=== PATIENT | male | born 1985 | race Caucasian/White ===

== ENCOUNTER 2017-10-17 00:11 | Emergency (ER) | payer MEDICAID, OTHER ==
[~2017-10-17] VITALS: Ht 190.5 cm; Wt 90.9 kg
[~2017-10-17 00:11] MED LIST: BACDS PO; CEPH-357 PO; HYDR-3566 PO; NO HOME MEDS; PENI-88 PO
[2017-10-17 00:14] VITALS: BP 152/94
[2017-10-17] MEDS ORDERED: AMOX500C2 PO (00:32)
== END 2017-10-17 00:56 | disposition home or self-care (01) ==
LOC: ER 00:12
DX: K08.89 Other specified disorders of teeth and supporting structures (principal); Z79.2 Long term (current) use of antibiotics; Z79.899 Other long term (current) drug therapy
CPT/HCPCS: 99283

== ENCOUNTER 2018-07-13 03:42 | Emergency (ER) | payer MEDICAID, OTHER ==
[~2018-07-13] VITALS: Ht 190.5 cm; Wt 104.5 kg
[2018-07-13 03:53] VITALS: BP 162/103
--- NOTE | 2018-07-13 04:15 | NUR ---
DISCUSSED PT WITH DR RUIZ. OK TO DO XRAY. HOLD ON LABS SINCE VSS.
[2018-07-13] MEDS ORDERED: DOXYCYCLINE 100MG CAPSULE PO STA (04:17)
[2018-07-13] MEDS ORDERED: ondansetron 4mg rapidly disintigrating tab PO ONE (04:20)
[2018-07-13] MEDS ORDERED: DOXY100C43 PO (04:23)
== END 2018-07-13 05:04 | disposition home or self-care (01) ==
LOC: ER 03:43
DX: L08.89 Other specified local infections of the skin and subcutaneous tissue (principal); Z79.899 Other long term (current) drug therapy
CPT/HCPCS: 73590; 99283

== ENCOUNTER 2019-10-10 06:48 | Emergency (ER) | payer MEDICAID, OTHER ==
[~2019-10-10] VITALS: Ht 188 cm; Wt 118.2 kg
[~2019-10-10 06:48] MED LIST changes: -HYDR-3566 PO; +HYDR-3567 PO
[2019-10-10 08:11] LABS: BASOPHILS # (AUTO) 0.1 X10'3 (0-0.2); BASOPHILS % (AUTO) 0.8 % (0-1); EOSINOPHILS # (AUTO) 0.2 X10'3 (0-0.9); EOSINOPHILS % (AUTO) 1.9 % (0-6); HEMATOCRIT 34.2 % (42.0-52.0); HEMOGLOBIN 11.4 g/dl (14.0-17.9); LYMPHOCYTES # (AUTO) 1.4 X10'3 (1.1-4.8); LYMPHOCYTES % (AUTO) 15.5 % (21-51); MEAN CORPUSCULAR HEMOGLOBIN 27.2 PG (27.0-31.0); MEAN CORPUSCULAR HGB CONC 33.4 g/dL (33.0-36.5); MEAN CORPUSCULAR VOLUME 81.4 FL (78-98); MEAN PLATELET VOLUME 7.4 FL (7.4-10.4); MONOCYTES # (AUTO) 1.1 X10'3 (0-0.9); MONOCYTES % (AUTO) 11.7 % (2-12); NEUTROPHILS # (AUTO) 6.3 X10'3 (1.8-7.7); NEUTROPHILS % (AUTO) 70.1 % (42-75); PLATELET COUNT 359 X10'3 (140-440); RED BLOOD COUNT 4.21 X10'6 (4.70-6.10); RED CELL DISTRIBUTION WIDTH 14.7 % (11.5-14.5)
[2019-10-10 08:28] LABS: ALANINE AMINOTRANSFERASE 33 U/L (12-78); ALBUMIN/GLOBULIN RATIO 0.7 (1.1-1.5); ALKALINE PHOSPHATASE 105 IU/L (46-116); ANION GAP 9 (8-16); ASPARTATE AMINO TRANSFERASE 25 U/L (10-37); BILIRUBIN,TOTAL 0.3 MG/DL (0.1-1.0); BLOOD UREA NITROGEN 12 MG/DL (7-18); BUN/CREATININE RATIO 12.9 (5.4-32.0); CALCIUM 8.4 MG/DL (8.5-10.1); CHLORIDE 106 MMOL/L (99-107); CREATININE 0.93 MG/DL (0.60-1.10); GLUCOSE 99 MG/DL (70-104); POTASSIUM 3.7 MMOL/L (3.5-5.1); SODIUM 141 MMOL/L (135-145); TOTAL CARBON DIOXIDE 25.7 MMOL/L (24-32); TOTAL PROTEIN 7.2 G/DL (6.4-8.2); eGFR > 90 ML/MIN
[2019-10-10 09:04] VITALS: BP 171/88
== END 2019-10-10 09:16 | disposition home or self-care (01) ==
LOC: ER 06:49
DX: R07.89 Other chest pain (principal); R06.03 Acute respiratory distress; F41.0 Panic disorder [episodic paroxysmal anxiety]; F12.90 Cannabis use, unspecified, uncomplicated; F15.90 Other stimulant use, unspecified, uncomplicated; Z79.2 Long term (current) use of antibiotics; Z79.899 Other long term (current) drug therapy
CPT/HCPCS: 36415; 71045; 80053; 84484; 85025; 93005; 99285

== ENCOUNTER 2020-09-15 20:53 | Emergency (ER) | payer MEDICAID, OTHER | END 2020-09-15 23:24 | disposition left against medical advice (07) | LOC: ER 20:54 | DX: F10.129 Alcohol abuse with intoxication, unspecified (principal); Z53.21 Procedure and treatment not carried out due to patient leaving prior to being seen by health care provider ==

== ENCOUNTER 2021-05-03 00:27 | Emergency (ER) | payer MEDICAID, OTHER ==
[~2021-05-03] VITALS: Ht 190.5 cm; Wt 124.6 kg
[2021-05-03 04:16] VITALS: BP 140/84
[2021-05-03] MEDS ORDERED: cephalexin 250mg capsule PO ONE (04:35)
[2021-05-03] MEDS ORDERED: CEPH250T PO (04:37)
== END 2021-05-03 04:58 | disposition home or self-care (01) ==
LOC: ER 00:28
DX: L97.929 Non-pressure chronic ulcer of unspecified part of left lower leg with unspecified severity (principal); F17.200 Nicotine dependence, unspecified, uncomplicated; F12.90 Cannabis use, unspecified, uncomplicated; F15.90 Other stimulant use, unspecified, uncomplicated
CPT/HCPCS: 99283

== ENCOUNTER 2021-10-23 07:26 | Emergency (ER) | payer MEDICAID ==
[~2021-10-23] VITALS: Ht 190.5 cm; Wt 113.8 kg
[~2021-10-23 07:26] MED LIST changes: +CEPH250T PO
[2021-10-23 07:44] VITALS: BP 168/89
== END 2021-10-23 09:05 | disposition home or self-care (01) ==
LOC: ER 07:26
DX: F10.20 Alcohol dependence, uncomplicated (principal); F17.200 Nicotine dependence, unspecified, uncomplicated; F12.90 Cannabis use, unspecified, uncomplicated; F15.20 Other stimulant dependence, uncomplicated
CPT/HCPCS: 99281

== ENCOUNTER 2021-12-01 03:29 | Inpatient (IN) | payer MEDICAID ==
[~2021-12-01] VITALS: Ht 188 cm; Wt 100.0 kg
[2021-12-01 04:54] LABS: BASOPHILS # (AUTO) 0.1 X10'3 (0-0.2); BASOPHILS % (AUTO) 0.9 % (0-1); EOSINOPHILS # (AUTO) 0.1 X10'3 (0-0.9); EOSINOPHILS % (AUTO) 1.4 % (0-6); HEMATOCRIT 38.8 % (42.0-52.0); HEMOGLOBIN 13.6 g/dl (14.0-17.9); LYMPHOCYTES # (AUTO) 2.7 X10'3 (1.1-4.8); LYMPHOCYTES % (AUTO) 31.1 % (21-51); MEAN CORPUSCULAR HEMOGLOBIN 31.8 PG (27.0-31.0); MEAN CORPUSCULAR HGB CONC 35.1 g/dL (33.0-36.5); MEAN CORPUSCULAR VOLUME 90.7 FL (78-98); MEAN PLATELET VOLUME 7.3 FL (7.4-10.4); MONOCYTES % (AUTO) 11.1 % (2-12); NEUTROPHILS # (AUTO) 4.9 X10'3 (1.8-7.7); NEUTROPHILS % (AUTO) 55.5 % (42-75); PLATELET COUNT 390 X10'3 (140-440); RED BLOOD COUNT 4.28 X10'6 (4.70-6.10); RED CELL DISTRIBUTION WIDTH 13.9 % (11.5-14.5); WHITE BLOOD COUNT 8.8 X10'3 (4.5-11.0)
[2021-12-01] MEDS ORDERED: CefTRIAXone/D5W-Rocephin 1gm 50 ML IV ONE (05:10)
[2021-12-01] MEDS ORDERED: vancomycin/NS 1 GM ADD-VANTAGE 250 ML IV ONE (05:10)
[2021-12-01 05:26] LABS: ALANINE AMINOTRANSFERASE 35 U/L (12-78); ALBUMIN/GLOBULIN RATIO 0.6 (1.1-1.5); ALKALINE PHOSPHATASE 93 IU/L (46-116); ANION GAP 13 (8-16); ASPARTATE AMINO TRANSFERASE 25 U/L (10-37); BILIRUBIN,TOTAL 0.2 MG/DL (0.1-1.0); BLOOD UREA NITROGEN 13 MG/DL (7-18); BUN/CREATININE RATIO 12.5 (5.4-32.0); CALCIUM 8.2 MG/DL (8.5-10.1); CHLORIDE 107 MMOL/L (99-107); CREATININE 1.04 MG/DL (0.60-1.10); ETHANOL 0.207 GM/DL (0.0-0.010); GLUCOSE 93 MG/DL (70-104); POTASSIUM 3.3 MMOL/L (3.5-5.1); SODIUM 143 MMOL/L (135-145); TOTAL CARBON DIOXIDE 22.8 MMOL/L (24-32); TOTAL PROTEIN 8.3 G/DL (6.4-8.2); eGFR 80 ML/MIN
[2021-12-01] MEDS ORDERED: normal saline 1000ML IV soln IV ONE (05:35)
[2021-12-01] MEDS ORDERED: acetaminophen 325mg tablet PO PRN ×2 (07:55)
[2021-12-01] MEDS ORDERED: ondansetron/PF 4mg/2ml inj IV PRN (07:55)
[2021-12-01] MEDS ORDERED: magnesium hydroxide 30ml (MOM) UD suspension PO PRN (07:55)
[2021-12-01] MEDS ORDERED: HYDROcodone/acetaminophen 5mg/325mg tablet PO PRN (07:55)
[2021-12-01] MEDS ORDERED: mag hydrox/Alum hydrox/simeth 30ml oral suspension PO PRN (07:55)
[2021-12-01] MEDS ORDERED: morphine 2 MG/ML inj. syringe IV PRN (07:55)
[2021-12-01] MEDS: docusate sod 100mg capsule PO SCH ×2 (08:00→19:51)
[2021-12-01] MEDS ORDERED: vancomycin/NS 1 GM ADD-VANTAGE 250 ML IV SCH (08:00)
[2021-12-01] MEDS: enoxaparin 40mg/0.4ml syringe SUBCUT SCH (08:00)
--- NOTE | 2021-12-01 08:23 | NUR ---
PT AWAKE AND COMPLAINING OF RIGHT SHOULDER PAIN. PT HAS LIMITED ROM IN ARM AND KRISTA TO TOUCH. PT STILL UNSURE WHAT HAPPENED LAST NIGHT. ADMITS TO ETOH USE BUT STATES HE ISNT CONCERNED FOR WITHDRAWL.
[2021-12-01] MEDS ORDERED: nicotine 21mg patch - 24 hr TD ONE (08:55)
[2021-12-01] MEDS: levoFLOXACIN 750MG TABLET PO SCH (11:33)
[2021-12-01] MEDS ORDERED: NO HOME MEDS (13:03)
[2021-12-01 15:37] LABS: URINE AMPHETAMINE SCREEN POSITIVE (Neg); URINE BARBITUATE SCREEN NEGATIVE (Neg); URINE BENZODIAZEPINES SCREEN NEGATIVE (Neg); URINE CANNABINOID SCREEN POSITIVE (Neg); URINE COCAINE SCREEN NEGATIVE (Neg); URINE METHADONE SCREEN NEGATIVE (Neg); URINE OPIATE SCREEN POSITIVE (Neg); URINE PHENCYCLIDINE SCREEN NEGATIVE (Neg)
[2021-12-01] MEDS ORDERED: potassium CL 10mEq/100ml bag 100 ML IV PRN (18:00)
[2021-12-01] MEDS ORDERED: magnesium 2GM in 50ml NS 50 ML IV PRN (18:00)
[2021-12-01] MEDS ORDERED: magnesium 4gm in 100ml NS 100 ML IV PRN (18:00)
[2021-12-01] MEDS ORDERED: magnesium Cl slow-release 64mg tablet PO PRN (18:00)
[2021-12-01] MEDS ORDERED: POTASSIUM BICARB 20meq eff tab 20 MEQ TABLET.EFF PO PRN ×2 (18:00)
[2021-12-01] MEDS: morphine 2 MG/ML inj. syringe IV PRN ×2 (18:08→22:28)
[2021-12-01] MEDS: VANCOmycin 1250MG/NS 250ml Bag 250 ML IV SCH (18:12)
[2021-12-01 19:30] VITALS: BP 154/94
[2021-12-01] MEDS: K and/or MAG REPLACEMENT MC SCH (19:47)
[2021-12-01] MEDS: HYDROcodone/acetaminophen 10/325mg tab PO PRN (19:51)
[2021-12-01 22:00] VITALS: BP 137/86
[2021-12-02] MEDS: VANCOmycin 1250MG/NS 250ml Bag 250 ML IV SCH ×2 (05:05→16:54)
[2021-12-02 06:00] VITALS: BP 157/96
--- NOTE | 2021-12-02 06:01 | NUR ---
Problems reprioritized. Patient report given, questions answered & plan of care reviewed with AIMEE Montgomery.
--- NOTE | 2021-12-02 07:00 | NUR ---
Informed patient needs new PIV due to prev one placed infiltrating. Patient is a very difficult stick and currently has 3 phlebotomists attempting a lab draw, with much difficulty locating aaccess. Bandar TOLEDO stated he would attempt.
[2021-12-02 07:28] LABS: BASOPHILS # (AUTO) 0.1 X10'3 (0-0.2); BASOPHILS % (AUTO) 0.7 % (0-1); EOSINOPHILS # (AUTO) 0.2 X10'3 (0-0.9); EOSINOPHILS % (AUTO) 2.2 % (0-6); HEMOGLOBIN 13.4 g/dl (14.0-17.9); LYMPHOCYTES # (AUTO) 1.3 X10'3 (1.1-4.8); LYMPHOCYTES % (AUTO) 18.3 % (21-51); MEAN CORPUSCULAR HGB CONC 33.4 g/dL (33.0-36.5); MEAN CORPUSCULAR VOLUME 92.7 FL (78-98); MEAN PLATELET VOLUME 8.1 FL (7.4-10.4); MONOCYTES # (AUTO) 0.9 X10'3 (0-0.9); MONOCYTES % (AUTO) 12.4 % (2-12); NEUTROPHILS # (AUTO) 4.8 X10'3 (1.8-7.7); NEUTROPHILS % (AUTO) 66.4 % (42-75); PLATELET COUNT 273 X10'3 (140-440); RED BLOOD COUNT 4.31 X10'6 (4.70-6.10); RED CELL DISTRIBUTION WIDTH 13.7 % (11.5-14.5); WHITE BLOOD COUNT 7.3 X10'3 (4.5-11.0)
--- NOTE | 2021-12-02 07:30 | NUR ---
Bandar TOLEDO unable to locate vein for access. Called ED requesting assistance with IV placement. ED staff was informed he has antibiotic due at 1100.
[2021-12-02 07:50] LABS: ALBUMIN 2.5 G/DL (3.4-5.0); ANION GAP 11 (8-16); BLOOD UREA NITROGEN 12 MG/DL (7-18); BUN/CREATININE RATIO 15.6 (5.4-32.0); CALCIUM 8.2 MG/DL (8.5-10.1); CHLORIDE 108 MMOL/L (99-107); CREATININE 0.77 MG/DL (0.60-1.10); GLUCOSE 88 MG/DL (70-104); SODIUM 141 MMOL/L (135-145); TOTAL CARBON DIOXIDE 22.2 MMOL/L (24-32); eGFR > 90 ML/MIN
[2021-12-02] MEDS: K and/or MAG REPLACEMENT MC SCH ×2 (08:00→18:48)
[2021-12-02] MEDS: enoxaparin 40mg/0.4ml syringe SUBCUT SCH (09:02)
[2021-12-02] MEDS: docusate sod 100mg capsule PO SCH ×2 (09:02→19:12)
--- NOTE | 2021-12-02 09:30 | NUR ---
I called ED to endsure assistance needed with PIV was not forgotten. [facility] Counsel[facility] who answered stated the CRN was in a trauma at the moment but would be sure to remind her when she was done.
[2021-12-02 10:00] VITALS: BP 112/54
--- NOTE | 2021-12-02 10:30 | NUR ---
Call from ED, flight nurse would be up to assist with PIV placement.
--- NOTE | 2021-12-02 10:56 | NUR ---
Malnutrition/wound consults: Per EMR pt with BLE wounds. Wound care has been consulted, pending assessment at this time. Pt reports 2-13 lb wt loss with decreased appetite per malnutrition risk screen with RN. No recent scaled wt hx in EMR and no documentation of how current wt was obtained however if accurate pt is 116% IBW. Currently on a regular diet and eating well, documented with 100% PO intake first meal. Per EMR pt with mild weakness though localized to right shoulder and left foot 2+ mild edema. Pt currently lacks a minimum of two criteria for malnutrition. Will continue to follow. Addendum: 12/02/21 at [address] Amended: Links added.
[2021-12-02] MEDS: levoFLOXACIN 750MG TABLET PO SCH (11:00)
--- NOTE | 2021-12-02 11:00 | NUR ---
Sent on break, when I returned 3 flight nurses at patient bedside all stating they were unable to access patient well enough to administer Vancomycin. IO access was suggested, since there is no PICC nurse available. Dr Persaud on floor at this time. I informed her of situation and that Levaquin antibiotic was now 35 minutes late. She was ok with IO placment. She did not want PICC placed anyway "due to increased risk of infection" I located Bandar TOLEDO learn if IO access is something done and maintained on this floor and if I was permitted to access once it is placed. He callled Edwin Oconnor. She was not sure and referred for me to find it in the P&P. She also stated her concern of IO only being good for [address] Persaud stated it was ok to place PIV in lower extremity. Flight crew stated to me there was no reasonable access there either. I referred to P&P, unable to find information needed. Will notify Bandar TOLEDO
[2021-12-02] MEDS: morphine 2 MG/ML inj. syringe IV PRN (14:49)
[2021-12-02] MEDS ORDERED: VANCOMYCIN LEVEL IV ONE (16:30)
[2021-12-02 18:00] VITALS: BP 158/94
[2021-12-02] MEDS: HYDROcodone/acetaminophen 10/325mg tab PO PRN (19:12)
[2021-12-02 22:00] VITALS: BP 144/85
[2021-12-03] MEDS ORDERED: VANCOMYCIN 1,500MG inj. 1,500 MG in dextrose 5% water 500ml 300 ML IV SCH (05:00)
[2021-12-03 06:00] VITALS: BP 156/101
--- NOTE | 2021-12-03 06:22 | NUR ---
Problems reprioritized. Patient report given, questions answered & plan of care reviewed with AIMEE Montgomery.
[2021-12-03] MEDS: morphine 2 MG/ML inj. syringe IV PRN ×2 (07:08→10:51)
[2021-12-03] MEDS: K and/or MAG REPLACEMENT MC SCH (08:00)
[2021-12-03 08:24] LABS: ALBUMIN 2.5 G/DL (3.4-5.0); ANION GAP 14 (8-16); BLOOD UREA NITROGEN 8 MG/DL (7-18); BUN/CREATININE RATIO 11.4 (5.4-32.0); CALCIUM 8.4 MG/DL (8.5-10.1); CHLORIDE 106 MMOL/L (99-107); GLUCOSE 91 MG/DL (70-104); SODIUM 141 MMOL/L (135-145); TOTAL CARBON DIOXIDE 21.1 MMOL/L (24-32); eGFR > 90 ML/MIN
[2021-12-03] MEDS: enoxaparin 40mg/0.4ml syringe SUBCUT SCH (08:24)
[2021-12-03] MEDS: docusate sod 100mg capsule PO SCH (08:24)
[2021-12-03] MEDS: HYDROcodone/acetaminophen 10/325mg tab PO PRN (08:25)
[2021-12-03 08:27] LABS: POTASSIUM 4.1 MMOL/L (3.5-5.1)
[2021-12-03 08:29] LABS: BASOPHILS # (AUTO) 0.1 X10'3 (0-0.2); BASOPHILS % (AUTO) 0.8 % (0-1); EOSINOPHILS # (AUTO) 0.2 X10'3 (0-0.9); EOSINOPHILS % (AUTO) 1.9 % (0-6); HEMATOCRIT 41.1 % (42.0-52.0); LYMPHOCYTES # (AUTO) 1.6 X10'3 (1.1-4.8); LYMPHOCYTES % (AUTO) 20.5 % (21-51); MEAN CORPUSCULAR VOLUME 91.2 FL (78-98); MONOCYTES # (AUTO) 0.8 X10'3 (0-0.9); MONOCYTES % (AUTO) 10.5 % (2-12); NEUTROPHILS # (AUTO) 5.3 X10'3 (1.8-7.7); NEUTROPHILS % (AUTO) 66.3 % (42-75); PLATELET COUNT 368 X10'3 (140-440); RED BLOOD COUNT 4.51 X10'6 (4.70-6.10); RED CELL DISTRIBUTION WIDTH 13.7 % (11.5-14.5)
[2021-12-03 10:00] VITALS: BP 147/94
[2021-12-03] MEDS: levoFLOXACIN 750MG TABLET PO SCH (10:59)
--- NOTE | 2021-12-03 11:30 | NUR ---
PAGER ID: [phone] MESSAGE: Kalie Cheema [id number] wound dressings are off
--- NOTE | 2021-12-03 12:45 | NUR ---
PAGER ID: [phone] MESSAGE: RE CARLOS NICOLE RM [id number] HE IS STATING HE WOULD RATHER JUST LEAVE TODAY AFTERALL THANK YOU, EDER YU
--- NOTE | 2021-12-03 13:01 | NUR ---
PAGER ID: [phone] MESSAGE: MOLLY DAVIS RM [id number] PT IS GOING AMA THANK YOU EDER YU
--- NOTE | 2021-12-03 13:05 | NUR ---
AFTER DISCUSSION WITH DR SAPP. PT DECIDED TO LEAVE [place]. INITIALLY THE PATIENT WAS UNDER THE IMPRESSION DR SAPP WAS GOING TO DICHARGE HIM TODAY. I WAS AT BEDSIDE AND SUGGESTED WE GET A WOUND CARE CONSULT FOR HIM TOMORROW WHEN THEY ARE HERE HE HAS NOT BEEN SEEN BY OUR WOUND TEAM HAS MISSED I HIS LAST 3 WEEKS OF OUTPATIENT WOUND APPOINTMEND AND HIS NEXT APPOINTMENT IS NOT UNTIL THE END OF THE WEEK. DR SAPP AGREED AND DISCUSSED WITH PATIENT THE NEED TO LEARN HOW TO DO HIS WOUND CARE AND PERFORM HIS SELF WHEN DISCHARGED. I EXPLAINED TO THE PATIENT HE WOULD BENEFIT IN STAYING AND THAT AFTER LEAVING HIS ROOM DR SAPP PUT IN A WOUND CARE CONSULT AND SPRINKLER FITTER HELPER CONSULT. HE STILL WAS ADAMANT ABOUT LEAVING TODAY TO STAY WITH HIS LEXIE.
[2021-12-04] MEDS ORDERED: VANCOMYCIN LEVEL IV ONE (16:30)
== END 2021-12-03 13:37 | disposition left against medical advice (07) | DRG 383 ==
LOC: ER 03:29 → ED HOLD 07:53 → ORTHO 4S 19:35
PROVIDERS: ADMIT Internal Medicine; ATTEND Internal Medicine
DX: L03.115 Cellulitis of right lower limb (principal); F10.229 Alcohol dependence with intoxication, unspecified; F15.90 Other stimulant use, unspecified, uncomplicated; Z53.29 Procedure and treatment not carried out because of patient's decision for other reasons; F17.210 Nicotine dependence, cigarettes, uncomplicated; L03.116 Cellulitis of left lower limb; Z59.00 Homelessness unspecified
CPT/HCPCS: 36415; 70450; 80048; 80053; 80202; 80305; 80320; 83605; 83735; 84145; 85025; 87040; 87070; 87077; 87081; 87186; 93925; 99285; A6223; A6446; A6449; G0378; J0696; J1650; J2270; J3370; J7030; J7040; J7060

== ENCOUNTER 2023-11-22 22:20 | Emergency (ER) | payer MEDICAID ==
[~2023-11-22] VITALS: Ht 190.5 cm; Wt 120.0 kg
[~2023-11-22 22:20] MED LIST changes: -BACDS PO; -CEPH-357 PO; -CEPH250T PO; -HYDR-3567 PO; -PENI-88 PO
[2023-11-22 22:27] VITALS: BP 116/60; PULSE 109; RESP 18; O2SAT 97
[2023-11-22 23:27] LABS: EOSINOPHILS # (AUTO) 0.2 X10'3 (0-0.9); LYMPHOCYTES # (AUTO) 3.4 X10'3 (1.1-4.8); MEAN CORPUSCULAR VOLUME 94.5 FL (78-98)
[2023-11-22 23:29] LABS: BASOPHILS # (AUTO) 0.1 X10'3 (0-0.2); BASOPHILS % (AUTO) 0.8 % (0-1); EOSINOPHILS % (AUTO) 2.3 % (0-6); HEMATOCRIT 44.3 % (42.0-52.0); HEMOGLOBIN 14.9 g/dl (14.0-17.9); LYMPHOCYTES % (AUTO) 42.2 % (21-51); MEAN CORPUSCULAR HEMOGLOBIN 31.9 PG (27.0-31.0); MEAN CORPUSCULAR HGB CONC 33.8 g/dL (33.0-36.5); MONOCYTES % (AUTO) 12.4 % (2-12); NEUTROPHILS # (AUTO) 3.4 X10'3 (1.8-7.7); NEUTROPHILS % (AUTO) 42.3 % (42-75); PLATELET COUNT 275 X10'3 (140-440); RED BLOOD COUNT 4.68 X10'6 (4.70-6.10); RED CELL DISTRIBUTION WIDTH 14.3 % (11.5-14.5); WHITE BLOOD COUNT 8.1 X10'3 (4.5-11.0)
[2023-11-23 00:35] VITALS: TEMP 98.2
[2023-11-23 01:15] LABS: BILIRUBIN,URINE SMALL (Neg); CLARITY,URINE CLEAR (Clear); COLOR,URINE YELLOW (Yellow); GLUCOSE, URINE NEGATIVE (Neg); KETONES,URINE TRACE mg/dl (Neg); LEUKOCYTE ESTERASE ,URINE NEGATIVE (Neg); NITRITES, URINE NEGATIVE (Neg); OCCULT BLOOD,URINE NEGATIVE (Neg); PH,URINE 6.5 (4.8-8.0); PROTEIN,URINE 30 mg/dl (Neg)
[2023-11-23 01:29] LABS: URINE AMPHETAMINE SCREEN NEGATIVE (Neg); URINE BARBITUATE SCREEN NEGATIVE (Neg); URINE BENZODIAZEPINES SCREEN NEGATIVE (Neg); URINE CANNABINOID SCREEN POSITIVE (Neg); URINE COCAINE SCREEN NEGATIVE (Neg); URINE METHADONE SCREEN NEGATIVE (Neg); URINE OPIATE SCREEN NEGATIVE (Neg); URINE PHENCYCLIDINE SCREEN NEGATIVE (Neg)
[2023-11-23 01:32] LABS: UA COLLECTION TYPE VOIDED
[2023-11-23 01:33] LABS: MUCUS STRANDS MODERATE /LPF (Neg); SQUAMOUS EPITHELIAL CELL,UR FEW /LPF (FEW)
[2023-11-23 01:35] LABS: BACTERIA,URINE FEW /HPF (Neg); RBC,URINE 0-2 /HPF (0-2); WBC,URINE 0-4 /HPF (0-4)
== END 2023-11-23 00:36 | disposition left against medical advice (07) ==
LOC: ER 22:20
DX: F10.10 Alcohol abuse, uncomplicated (principal); M79.89 Other specified soft tissue disorders; E86.0 Dehydration; Z53.21 Procedure and treatment not carried out due to patient leaving prior to being seen by health care provider
CPT/HCPCS: 36415; 80053; 80305; 80320; 81001; 84443; 85025; 87811